=== PATIENT | male | born 1980 | race Caucasian/White ===

== ENCOUNTER 2016-10-06 00:20 | Emergency (ER) | payer OTHER ==
[2016-10-06 00:37] VITALS: BP 129/90; PULSE 65; TEMP 97.9; BMI 25.7
--- NOTE | 2016-10-06 00:40 | PDOC ---
History of Present Illness - General Chief Complaint: Urinary Problem Stated Complaint: LEFT FLANK PAIN Time Seen by Provider: 10/06/16 00:23 - History of Present Illness Initial Comments: 10/06/16 00:33 This 36-year-old man with one previous history of renal colic (3 years ago), presents with a few brief episodes of sharp pain in his left flank a few hours prior to presentation as well as a 2 day history of intermittent dysuria/ urinary urgency. Ureteral stones past 3 years ago without urologic intervention (patient does not have a urologist) ; no recurrent episodes. He denies hematuria or cloudy urine currently. He has not had fever/nausea. No previous history of UTI. Strong family history of kidney stones. Patient is otherwise healthy. No medications No known ALLERGIES Past History - Past Medical History Allergies/Adverse Reactions: Allergies Allergy/AdvReac Type Severity Reaction Status Date / Time No Known Allergies Allergy Verified 10/06/16 00:22 Home Medications: Ambulatory Orders Ciprofloxacin [Cipro (Restricted To Id)] 500 mg PO Q12H #14 tablet 10/06/16 Review of Systems - Review of Systems Able to Perform ROS?: Yes Comments:: 12 point review of systems is negative except for what is noted in the history of present illness *Physical Exam - Physical Exam Comments: GENERAL: Adult male, alert and oriented 3, in no acute distress HEAD: Normal with no signs of trauma. EYES: PERRLA, EOMI, sclera anicteric, conjunctiva clear. ENT: Ears normal, nares patent, oropharynx clear without exudates. Moist mucous membranes. NECK: Normal range of motion, supple without lymphadenopathy, JVD, or masses. LUNGS: Breath sounds equal, clear to auscultation bilaterally. No wheezes, and no crackles. HEART:Regular rate and rhythm, normal S1 and S2 without murmur, rub or gallop. ABDOMEN:.normal bowel sounds No guarding,tenderness or rebound.No masses No distention. EXTREMITIES: Normal range of motion, no edema. No clubbing or cyanosis. No erythema, or tenderness. NEUROLOGICAL: Cranial nerves II through XII grossly intact. Normal speech. No focal neurological deficits. MUSCULOSKELETAL: Back non-tender to palpation, no CVA tenderness SKIN: Warm, Dry, normal turgor, no rashes or lesions noted. Progress Note - Progress Note Progress Note: Urinalysis shows no evidence of abnormality on dipstick. urine culture and sensitivity is pending Results discussed with the patient. Because he has significant dysuria without penile discharge or previous episode of prostatitis/STD,, patient will be treated with ciprofloxacin 500 mg now and prescription for 500 mg twice a day for the next week will be sent to his pharmacy. Patient will be given referral information for urologist (Dr. Lucas). It was strongly advised that patient follow-up with Dr. Lucas within the next 2 days. He should return to the emergency room if he has more severe pain or experiences vomiting/fever *DC/Admit/Observation/Transfer Diagnosis at time of Disposition: Dysuria - Discharge Dispostion Disposition: HOME Condition at time of disposition: Stable - Prescriptions Prescriptions: Ciprofloxacin [Cipro (Restricted To Id)] 500 mg PO Q12H #14 tablet - Referrals Referrals: Yosef Lucas MD [Staff Physician] - Call tomorrow - Patient Instructions Printed Discharge Instructions: Prostatitis Additional Instructions: Drink plenty of water Cipro 500 mg twice a day for 1 week Call tomorrow AM for follow-up within 48 hours Return to ER if you have severe pain/vomiting/fever
[2016-10-06 01:40] LABS: URINE APPEARANCE CLEAR; URINE BILIRUBIN NEGATIVE (NEGATIVE); URINE BLOOD NEGATIVE (NEGATIVE); URINE COLOR LTYELLOW; URINE GLUCOSE (UA) NEGATIVE (NEGATIVE); URINE KETONE NEGATIVE (NEGATIVE); URINE LEUK ESTERASE NEGATIVE (NEGATIVE); URINE NITRITE NEGATIVE (NEGATIVE); URINE PROTEIN NEGATIVE (NEGATIVE); URINE UROBILINOGEN NEGATIVE mg/dL (0.2-1.0)
[2016-10-06] MEDS ORDERED: CIPROFLOXACIN 500 MG TABLET (RESTRICTED TO ID) PO ONE (01:53)
[2016-10-06] MEDS ORDERED: CIPROFLOXACIN 250 MG TABLET (RESTRICTED TO ID) PO ONE (01:55)
== END 2016-10-06 01:59 | disposition home or self-care (01) ==
LOC: FER 00:20
DX: R30.0 Dysuria (principal)
CPT/HCPCS: 81003; 87086; 99281-25

== ENCOUNTER 2018-05-09 22:14 | Emergency (ER) | payer OTHER ==
[2018-05-09 22:23] VITALS: BP 112/78; PULSE 59; TEMP 98.4; BMI 25.0
--- NOTE | 2018-05-09 23:31 | PDOC ---
History of Present Illness - General History Source: Patient Exam Limitations: No Limitations - History of Present Illness Initial Comments: 05/09/18 23:48 The patient is a 38 year old male, with no sig PMHx who presents to the emergency department with a left hand injury earlier today. The patient notes he was at [employer], fell, landed on his left hand and hyperextended his fingers. The patient notes his left pinky endures the most pain due to the fact that he had a broken metacarpal years ago. The patient notes he had numbness and tingling on his left hand that eventually self resolved. The patient denies chest pain, shortness of breath, headache or dizziness. The patient denies fever, chills, nausea, vomit, diarrhea or constipation. The patient denies dysuria, frequency, urgency or hematuria. Allergies: NKDA Past surgical history: Wrist surgery, renal colic Social history: None reported <Gildardo Robin - Last Filed: 05/09/18 23:48> <Milagro Kessler - Last Filed: 05/10/18 00:26> - General Chief Complaint: Injury Stated Complaint: LEFT HAND INJURY Time Seen by Provider: 05/09/18 22:38 Past History <Gildardo Robin - Last Filed: 05/09/18 23:48> - Past Medical History COPD: No Other medical history: BROKEN METACARPAL - Suicide/Smoking/Psychosocial Hx Smoking History: Never smoked Have you smoked in the past 12 months: No Information on smoking cessation initiated: No Hx Alcohol Use: No Drug/Substance Use Hx: No Substance Use Type: None <Milagro Kessler - Last Filed: 05/10/18 00:26> - Past Medical History Allergies/Adverse Reactions: Allergies Allergy/AdvReac Type Severity Reaction Status Date / Time No Known Allergies Allergy Verified 05/09/18 22:16 Home Medications: Ambulatory Orders NK [No Known Home Medication] 05/09/18 Review of Systems - Review of Systems Able to Perform ROS?: Yes Comments:: 05/09/18 23:49 See HPI. All other systems reviewed and unremarkable <Gildardo Robin - Last Filed: 05/09/18 23:48> *Physical Exam - Vital Signs Last Vital Signs Temp Pulse Resp BP Pulse Ox 98.4 F 59 L 16 112/78 97 05/09/18 22:18 05/09/18 22:18 05/09/18 22:18 05/09/18 22:18 05/09/18 22:18 - Physical Exam Comments: 05/09/18 23:49 NAD EOMI, CHERYL MMM, OP WNL NCAT, no midline cervical tenderness RRR, nl s1/s2, no m/r/g CTABL, no w/r/r Soft, NTND unremarkabe elbow and wrist examination. 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 (+) finger extension 5/5. (+) pain with lateral motion of pinky, MCP stable. (+) pain with palpation on flexor tendon of palm. No edema, WWP, no rash Neuro grossly intact, gait WNL, moving all 4 A&O x 3, mood/affect WNL. <Gildardo Robin - Last Filed: 05/09/18 23:48> - Vital Signs Last Vital Signs Temp Pulse Resp BP Pulse Ox 98.4 F 59 L 16 112/78 97 05/09/18 22:18 05/09/18 22:18 05/09/18 22:18 05/09/18 22:18 05/09/18 22:18 <Milagro Kessler - Last Filed: 05/10/18 00:26> Moderate Sedation - Procedure Monitoring Vital Signs: Procedure Monitoring Vital Signs Temperature 98.4 F 05/09/18 22:18 Pulse Rate 59 L 05/09/18 22:18 Respiratory Rate 16 05/09/18 22:18 Blood Pressure 112/78 05/09/18 22:18 O2 Sat by Pulse Oximetry (%) 97 05/09/18 22:18 <Gildardo Robin - Last Filed: 05/09/18 23:48> - Procedure Monitoring Vital Signs: Procedure Monitoring Vital Signs Temperature 98.4 F 05/09/18 22:18 Pulse Rate 59 L 05/09/18 22:18 Respiratory Rate 16 05/09/18 22:18 Blood Pressure 112/78 05/09/18 22:18 O2 Sat by Pulse Oximetry (%) 97 05/09/18 22:18 <Milagro Kessler - Last Filed: 05/10/18 00:26> ED Treatment Course - Medications Given in the ED: ED Medications Discontinued Medications Generic Name Dose Route Start Last Admin Trade Name Mary PRN Reason Stop Dose Admin Ibuprofen 600 mg 05/09/18 23:33 05/09/18 23:36 Motrin - PO 05/09/18 23:34 600 mg ONCE ONE Administration <Gildardo Robin - Last Filed: 05/09/18 23:48> - RADIOLOGY Radiology Studies Ordered: Category Date Time Status HAND- LEFT [RAD] Stat Radiology 05/09/18 22:47 Taken <Milagro Kessler - Last Filed: 05/10/18 00:26> Medical Decision Making - Medical Decision Making 05/09/18 23:26 38yoM RH dominant w/ pain to L hand after hyperextension of fingers 2-5 while pratciting martial arts. Had transient numbness/tingling to digits, now resolved. pt is complaiint of persistent pain along flexor tendons in palm and with lateral movement of 5th digit. strength and neurovascular examination intact. - xrays r/o osseous injury or malalignment. - ibuprofen - hand f/u. 05/10/18 00:25 xray hand negative for acute fracture to my read. Pt referred to hand surgery BERNIE wrap applied to hand, discussed with patient NWB to hand until evaluated by hand surgery. Pt works at [employer], states he does not use his hand for his job. DC. <Milagro Kessler - Last Filed: 05/10/18 00:26> *DC/Admit/Observation/Transfer - Attestations Scribe Attestion: 05/09/18 23:49 Documentation prepared by Gildardo Robin, acting as medical staff services manager for Milagro Kessler MD, MD <Gildardo Robin - Last Filed: 05/09/18 23:48> - Discharge Dispostion Decision to Admit order: No <Milagro Kessler - Last Filed: 05/10/18 00:26> Diagnosis at time of Disposition: Hand pain, left - Discharge Dispostion Disposition: HOME Condition at time of disposition: Stable - Referrals Referrals: Sb Pruitt MD [Staff Physician] - - Patient Instructions Additional Instructions: Ibuprofen 400mg (2 tabs) every 4-6 hours for pain and inflammation. rest ICE to injury avoid carrying weight or further push-off maneuvers with affected hand until evaluated by the Hand Doctor. Followup with Hand surgery as directed, Dr. Pruitt. - Post Discharge Activity Forms/Work/School Notes: Back to Work
[2018-05-09] MEDS ORDERED: IBUPROFEN 600 MG TABLET (FP) PO ONE ×2 (23:33→23:35)
== END 2018-05-10 00:49 | disposition home or self-care (01) ==
LOC: FER 22:14
DX: M79.642 Pain in left hand (principal); W22.8XXA Striking against or struck by other objects, initial encounter; Y93.75 Activity, martial arts; Y92.89 Other specified places as the place of occurrence of the external cause
CPT/HCPCS: 73130-TC-LT-FY; 99281-25